=== PATIENT | female | born 1945 | race Caucasian/White ===

== ENCOUNTER 2016-08-23 14:12 | Emergency (ER) | payer OTHER, BC ==
--- NOTE | 2016-08-23 14:26 | PDOC ---
History of Present Illness - General History Source: Patient, Old Records Exam Limitations: No Limitations <DaianaAlma - Last Filed: 08/23/16 16:58> - General History Source: Patient, Old Records Exam Limitations: No Limitations - History of Present Illness Initial Comments: 08/23/16 14:43 The patient is a 70 year old female, with a significant past medical history of hypertension and hyperlipidemia, who presents to the emergency department with right foot pain after running into a brick earlier today. The patient states that she was with her grandchildren in her backyard earlier today when she accidentally ran into a brick while wearing flip flops. The patient reports right foot pain which is worst at the right pinky toe. The patient describes the pain as a burning sensation and reports difficulty ambulating afterwards. The patient has been applying ice to the injury. The patient denies any extremity weakness/numbness/tingling. The patient denies any other injury or trauma. The patient's is at the bedside. Allergies: None reported. Past Surgical History: Left Hand Surgery. Social History: Former smoker (quit 29 years ago). Denies alcohol or drug use. PCP: Dr. Mckay <Maria C Ruth - Last Filed: 08/23/16 18:54> - General Chief Complaint: Injury Stated Complaint: RT 5TH TOE INJURY Time Seen by Provider: 08/23/16 14:26 Past History - Past Medical History Anemia: No Asthma: No Cancer: No Cardiac Disorders: No CVA: No COPD: No CHF: No Dementia: No Diabetes: No GI Disorders: No Disorders: No HTN: Yes Hypercholesterolemia: Yes Liver Disease: No Seizures: No Thyroid Disease: Yes - Surgical History Abdominal Surgery: No Appendectomy: No Cardiac Surgery: No Cholecystectomy: No Lung Surgery: No Neurologic Surgery: No Orthopedic Surgery: Yes (Left Hand Surgery) - Psycho/Social/Smoking Cessation Hx Anxiety: No Suicidal Ideation: No Smoking History: Unknown if ever smoked Have you smoked in the past 12 months: No If you are a former smoker, when did you quit?: 29 yrs ago Information on smoking cessation initiated: No Hx Alcohol Use: No Drug/Substance Use Hx: No Substance Use Type: None Hx Substance Use Treatment: No <Alma Ahmadi - Last Filed: 08/23/16 16:58> <Maria C Ruth - Last Filed: 08/23/16 18:54> - Past Medical History Allergies/Adverse Reactions: Allergies Allergy/AdvReac Type Severity Reaction Status Date / Time No Known Allergies Allergy Verified 08/23/16 14:20 Home Medications: Ambulatory Orders Levothyroxine [Synthroid -] 150 mcg PO DAILY 03/26/13 Pravastatin Sodium [Pravachol -] 80 mg PO HS 03/26/13 Ramipril [Altace] 10 mg PO DAILY 03/26/13 Aspirin [ASA -] 81 mg PO DAILY #0 03/27/13 Review of Systems - Review of Systems Able to Perform ROS?: Yes Comments:: 08/23/16 14:32 GENERAL/CONSTITUTIONAL: No fever or chills. No weakness. HEAD, EYES, EARS, NOSE AND THROAT: No change in vision. No ear pain or discharge. No sore throat. CARDIOVASCULAR: No chest pain or shortness of breath. RESPIRATORY: No cough, wheezing, or hemoptysis. GASTROINTESTINAL: No nausea, vomiting, diarrhea or constipation. GENITOURINARY: No dysuria, frequency, or change in urination. MUSCULOSKELETAL: +Right pinky toe pain. No muscle swelling or pain. No neck or back pain. SKIN: No rash. NEUROLOGIC: No headache, vertigo, loss of consciousness, or change in strength/ sensation. ENDOCRINE: No increased thirst. No abnormal weight change. HEMATOLOGIC/LYMPHATIC: No anemia, easy bleeding, or history of blood clots. ALLERGIC/IMMUNOLOGIC: No hives or skin allergy. <Maria C Ruth - Last Filed: 08/23/16 18:54> *Physical Exam - Vital Signs Last Vital Signs Temp Pulse Resp BP Pulse Ox 99 F 64 18 160/92 98 08/23/16 14:12 08/23/16 14:12 08/23/16 14:12 08/23/16 14:12 08/23/16 14:12 <Alma Ahmadi - Last Filed: 08/23/16 16:58> - Vital Signs Last Vital Signs Temp Pulse Resp BP Pulse Ox 99 F 64 18 160/92 98 08/23/16 14:12 08/23/16 14:12 08/23/16 14:12 08/23/16 14:12 08/23/16 14:12 - Physical Exam Comments: 08/23/16 14:35 GENERAL: Awake, alert, and fully oriented, in no acute distress. HEAD: No signs of trauma. EYES: PERRLA, EOMI, sclera anicteric, conjunctiva clear. ENT: Auricles normal inspection, hearing grossly normal, nares patent, oropharynx clear without exudates. Moist mucosa. NECK: Normal ROM, supple, no lymphadenopathy, JVD, or masses. LUNGS: Breath sounds equal, clear to auscultation bilaterally. No wheezes, and no crackles. HEART: Regular rate and rhythm, normal S1 and S2, no murmurs, rubs or gallops. ABDOMEN: Soft, nontender, normoactive bowel sounds. No guarding, no rebound. No masses. EXTREMITIES: Ecchymosis and swelling of the right pinky toe which is tender to palpation. Distal pulses intact. Motor exam is limited secondary to pain. Normal range of motion. No clubbing or cyanosis. No cords or erythema. NEUROLOGICAL: Cranial nerves II through XII intact. Normal speech, gait deferred. SKIN: Warm, dry, normal turgor, no rashes or lesions noted. <Maria C Ruth - Last Filed: 08/23/16 18:54> Procedures - Joint Reduction Right Joint Reduction Site: right: Finger (5th toe) Pre-Procedure NV Exam: normal Conscious Sedation: No Finger Block: 5th digit (toe) Reduction Attempts: 1 Anesthetic: 2% Lidocaine Amount (mL): 3 Procedure: Other Post-Procedure NV Exam: normal Complications: No Post Joint Reduction Film: joint reduced Immobilized: Yes (yaya tape) <Maria C Ruth - Last Filed: 08/23/16 18:54> Medical Decision Making - Medical Decision Making 08/23/16 14:28 70 y/o female with HTN, HLD presents to the ED with right pinky tow pain after running into a brick earlier today. DDx includes but is not limited to: fx, contusion, sprain. Plan: 1. Plain films 2. Pain management 3. Ice 4. Observe and re-evaluate 08/23/16 16:58 Addendum: Plain films showed a subluxation of the right 5th prox phalange. The digit was relocated (see procedure note) and post reduction films show that the phalynx is relocated. The patient is feeling improved. Will discharge home , follow-up with ortho as needed. <Alma Ahmadi - Last Filed: 08/23/16 16:58> - Medical Decision Making 08/23/16 16:09 EXAM: RAD/FOOT - RIGHT Reviewed By: Dr. Alverto Ortega IMPRESSION: AP, oblique and lateral views have been submitted. There is calcaneal spurring, loss of bone density, degenerative changes with flexed toes and subluxation of the PIP joint of the fifth toe. Is no sign of a gross fracture. There is bunion formation by the first MTP joint. There is a hypodensity seen in the proximal phalanx of the great toe with some cystic changes seen in the distal end of the first metatarsal. Correlation recommended. Orthopedic follow-up may be of help. EXAM: RAD/FOOT - RIGHT Reviewed By: Dr. Alverto Ortega IMPRESSION: Since the prior study of 1452 hours, the subluxation at the PIP joint of the right fifth toe has been corrected. Correlation recommended. <Maria C Ruth - Last Filed: 08/23/16 18:54> *DC/Admit/Observation/Transfer - Discharge Dispostion Admit: No - Attestations Physician Attestion: 08/23/16 14:30 I, Dr. Alma Ahmadi, attest that the scribes documentation that appears above has been prepared under my direction and personally reviewed by me in its entirety. I confirmed that the note above accurately reflects all work, treatment, procedures, and medical decision-making performed by me. <Alma Ahmadi - Last Filed: 08/23/16 16:58> - Attestations Scribe Attestion: 08/23/16 14:27 Documentation prepared by Maria C Ruth, acting as medical physicist for Alma Ahmadi MD. <Maria C Ruth - Last Filed: 08/23/16 18:54> Diagnosis at time of Disposition: Subluxation of right toe - Discharge Dispostion Disposition: HOME Condition at time of disposition: Stable - Patient Instructions Printed Discharge Instructions: Dislocated Toe Additional Instructions: Yaya tape the toes. Tylenol or ibuprofen for pain. Follow-up with an orthopedist or a roadmaster. Return to the ED if your symptoms persist, worsen or new symptoms arise.
[2016-08-23 14:34] VITALS: BP 160/92; PULSE 64; TEMP 99; BMI 27.8
[2016-08-23] MEDS ORDERED: LIDOCAINE HCL 2% (20ML MULTI-DOSE VIAL) NR ONE (16:13)
== END 2016-08-23 17:28 | disposition home or self-care (01) ==
LOC: FER 14:12
PROC: 2W3UXYZ Immobilization of Right Toe using Other Device (ICD-10-PCS; principal; 2016-08-23)
DX: S93.101A Unspecified subluxation of right toe(s), initial encounter (principal); W22.8XXA Striking against or struck by other objects, initial encounter; Y93.9 Activity, unspecified; Y92.9 Unspecified place or not applicable
CPT/HCPCS: 29550; 73630-TC-RT; 99282-25

== ENCOUNTER 2023-03-09 11:15 | Emergency (ER) | payer OTHER, BC ==
[2023-03-09 11:53] VITALS: BP 172/90; PULSE 62; RESP 18; TEMP 98.6; BMI 27.4
== END 2023-03-09 12:29 | disposition home or self-care (01) ==
LOC: FER 11:15
DX: M54.2 Cervicalgia (principal)
CPT/HCPCS: 99283-25

== ENCOUNTER 2024-09-08 17:01 | Emergency (ER) | payer OTHER, BC ==
[2024-09-08 17:24] VITALS: TEMP 98.4; BMI 27.4
[2024-09-08] MEDS: KETOROLAC TROMETHAMINE 15 MG/ML VIAL IVPUSH ONE (17:40)
[2024-09-08 17:45] LABS: BASOPHILS # 0.04 x10^3/uL (0.01-0.08); EOSINOPHIL % 2.1 % (0.7-5.8); EOSINOPHILS # 0.13 x10^3/uL (0.04-0.36); HEMATOCRIT 38.7 % (34.1-44.9); HEMOGLOBIN 12.9 g/dL (11.2-15.7); MCHC 33.3 g/dl (32.2-35.5); MEAN CELL VOLUME 92.8 fl (79.4-94.8); MEAN PLT VOLUME 10.1 fl (9.4-12.3); MONOCYTE # 0.47 x10^3/uL (0.24-0.86); MONOCYTE % 7.8 % (4.7-12.5); PLATELET COUNT 288 x10^3/uL (182-369); RDW 12.4 % (12.4-16.6)
[2024-09-08] MEDS ORDERED: KETOROLAC TROMETHAMINE 15 MG/ML VIAL ONE (17:53)
[2024-09-08 18:03] LABS: ALBUMIN 4.6 g/dl (3.4-5.0); ALK PHOS 55 U/L (45-117); ANION GAP 10 mmol/L (4-13); BILIRUBIN,TOTAL 0.6 mg/dl (0.2-1); CALCIUM 9.8 mg/dl (8.5-10.1); CHLORIDE 101 mmol/L (98-107); CO2 26 mmol/L (21-32); GLUCOSE,RANDOM 108 mg/dl (74-106); POTASSIUM 4.3 mmol/L (3.5-5.1); SGOT/AST 18 U/L (15-37); SGPT/ALT 17 U/L (7-52); SODIUM 137 mmol/L (136-145); TOT PROT 7.2 g/dl (6.4-8.2)
[2024-09-08 18:51] VITALS: BP 146/77; PULSE 59; RESP 16
[2024-09-08 19:03] LABS: EPITHELIAL CELLS 0-5 /hpf
[2024-09-08 20:27] LABS: HCV DIAGNOSTIC IN-HOUSE W/RFLX NON-REACTIVE (NONREACTIVE); HIV INTERPRETATION NEGATIVE (NEGATIVE)
== END 2024-09-08 20:46 | disposition home or self-care (01) ==
LOC: FER 17:01
PROC: 3E0333Z Introduction of Anti-inflammatory into Peripheral Vein, Percutaneous Approach (ICD-10-PCS; principal; 2024-09-08)
DX: R10.32 Left lower quadrant pain (principal); M25.552 Pain in left hip; R10.2 Pelvic and perineal pain
CPT/HCPCS: 36415; 73502-TC-LT-FY; 74176-TC; 80053; 81003; 81015; 83735; 85025; 86803; 87086; 87389; 99285-25